=== PATIENT | male | born 1960 | race Caucasian/White ===

== ENCOUNTER → 2016-08-22 | Outpatient (CLI) | payer BC ==
[~2016-08-22] MED LIST: ALLO300T2 PO; ESOM20CA PO; LISI1TAB8 PO; SUCR1TAB29 PO
[2016-08-22 21:43] VITALS: BP 134/88
--- NOTE | 2016-08-22 21:43 | Urgent Care T Sheet Gen (E) ---
Intake General Temperature (Fahrenheit): 98.3 Pulse: 101 Blood Pressure Systolic: 134 Blood Pressure Diastolic: 88 Respirations: 18 SPO2: 96 Chief Complaint: laceration right 2nd finger Source: Patient History of Present Illness Initial Comments Pt notes that just prior to arrival he cut is right 2nd finger on some tin roof. He was helping his son fix a tin roof at his son's house and as the pt was lifting a sheet of tin roof the wind caught the tin and blew it and it cut the patient's finger. Pt notes no loss of function of the finger. Pt unsure when his last tetanus was. Allergies: Coded Allergies: No Known Drug Allergies (Unverified , 08/20/13) Home Meds Reported Medications Esomeprazole Magnesium (Nexium)20 Mg Capsule.dr20 Mg PO DAILY 08/20/13 Allopurinol 300 Mg [id number] Mg PO DAILY 08/20/13 Respiratory Constitutional Symptoms: No syptoms reported EENTM: No symptoms reported Respiratory: No symptoms reported Cardiovascular: No symptoms reported Gastrointestinal/Abdominal: No symptoms reported Genitourinary: No symptoms reported Musculoskeletal: No symptoms reported Skin: See HPI Other (laceration ) All Other Systems Reviewed Remaining Systems: All other systems reviewed with negative findings Past Atmctrl-Izdsfn-Jeiwxf Hx Patient's Social History Alcohol Use: Denies Use Smoking Status: Never smoker Infectious Disease Exposure: No Recent foreign travel: No Surgeries/Hospitalizations Hospitalization/Surgery Hx: Left knee surgery. Back Surgery-2013. Removal of anal skin tag, PAUL Respiratory Respiratory History: None Cardiovascular Cardiovascular History: None Neuro/Muscular Neuro/Muscular History: None Comment: Obesity Reproductive System Sexually Transmitted Diseases: No Genitouinary Genitourinary History: None Gastrointestinal GI/Endocrine History: Gallbladder problems, Abdominal pain, GERD Diabetes Diabetes: No HEENT Impaired Vision: Glasses Hearing Impaired: None Integumentary Integumentary History: None Cancer History of Cancer?: No Blood Transfusions Hx of Blood transfusions: No Physical Exam Physical Exam General Appearance: WD/WN No apparent distress Extremity Exam: Full range of motion Normal capillary refill Laceration ( right 2nd finger) Other (On exam of the right 2nd finger: pt has a "v" shaped laceration on the palmar aspect of the finger that crosses the DIP joint. Bleeding is well controlled. Pt has full extension and flexion of the finger. Pt has slight decrease sensation just distal to the laceration but has normal neurological function at the tip of the finger. Capillary refill is normal.) Neurologic/Psychiatric Exam: No motor deficits Procedures/Interventions Laceration Repair : Location Modifier: Right, Distal, Ventral, 2nd Digit Wound Location: Finger Type: Laceration Wound Appearance: Well Approximated Laceration Depth: Superficial Lesion Length: 2.5 Laceration Explored: Clean Irrigated w/Saline (mls): 20 Skin Prep Used: Other (sterile saline) Anesthesia: 1% Lidocaine Volume of Anesthetic (mls): 2 Suture: Prolene Suture Size: 4-0 Number of Sutures: 7 Sterile Dressing Applied: Yes Progress Area was copiously irrigated with sterile saline. Anesthetized locally with 1% lidocaine. Under sterile technique7 simple interrupted sutures were place. Pt tolerated the procedure well. Neurovascular exam was normal. Other Treatments Treatment: Tdap given in left deltoid. Pt tolerated the procedure well. Medications Administered Medications Adminstered: TDAP > 7 yrs Comment Lot:[id number] EXP: 09/15/17 Departure Urgent Care Impression Chief Complaint: laceration right 2nd finger Impression: Primary Impression: Laceration of finger of right hand Qualified Code: S61.219A - Laceration without foreign body of unspecified finger without damage to nail, initial encounter Departure Disposition: 01 HOME OR SELF-CARE Condition: Stable Referrals: RENE HIRSCH MD (PCP) Additional Instructions: Keep finger clean and dry. Change dressing daily. Follow-up for suture removal in 7 days. Return to ER or UC if signs of infection or other concerns. Discharge instructions verbally given to Patient. Patient verbalizes understanding of discharge instructions. End of report . CAROLINA MENDIOLA Aug 22, 2016 21:43
== END ==
LOC: MHUC 19:35
PROVIDERS: ATTEND Physician Assistant
DX: S61.216A Laceration without foreign body of right little finger without damage to nail, initial encounter (principal); W26.8XXA Contact with other sharp object(s), not elsewhere classified, initial encounter
CPT/HCPCS: 12001; 90471; 99213